=== PATIENT | female | born 1985 | race Caucasian/White ===

== ENCOUNTER 2016-03-23 07:52 | Inpatient (IN) | payer OTHER ==
[2016-03-23] VITALS (27 sets, daily range): BP systolic 116–158; BP diastolic 61–90; PULSE 71–110; RESP 17–18; TEMP 97.7–98.3
[2016-03-23] MEDS ORDERED: LACTATED RINGER'S 1000 ML INJ 1,000 ML IV PRN (08:22)
[2016-03-23] MEDS ORDERED: OXYTOCIN 30 UNITS-500ML PREMIX 500 ML IV ONE (08:30)
[2016-03-23] MEDS ORDERED: MINERAL OIL 10 ML VIAL TOPICAL PRN (08:30)
[2016-03-23] MEDS ORDERED: OXYTOCIN 30 UNITS-500ML PREMIX 500 ML IV SCH (08:30)
[2016-03-23] MEDS ORDERED: LIDOCAINE HCL 1% 50 ML VIAL I-DERMAL PRN (08:30)
[2016-03-23] MEDS ORDERED: LIDOCAINE HCL 1% 50 ML VIAL INFIL PRN (08:30)
[2016-03-23] MEDS ORDERED: SODIUM CHLORID 0.9% 500 ML INJ 500 ML IV PRN (08:30)
[2016-03-23] MEDS ORDERED: CITRIC ACID-SODIUM CITRATE LIQ 30 ML UDC PO SCH (08:30)
[2016-03-23] MEDS ORDERED: SODIUM CHLOR 0.9% 1000 ML INJ 1,000 ML IV PRN (08:42)
[2016-03-23] MEDS: LACTATED RINGER'S 1000 ML INJ 1,000 ML IV SCH ×3 (08:56→21:02)
[2016-03-23 08:59] LABS: AUTOMATED NEUTROPHIL # 6.9 TH/MM3 (1.8-7.7); BASOPHIL # 0.1 TH/MM3 (0-0.2); BASOPHIL % 0.8 % (0.0-2.0); EOSINOPHIL # 0.1 TH/MM3 (0-0.4); EOSINOPHIL % 1.1 % (0.0-4.0); HEMATOCRIT 35.8 % (35.0-46.0); HEMO FLAGS DIFF FINAL; LYMPH % 15.2 % (9.0-44.0); LYMPHOCYTE # 1.5 TH/MM3 (1.0-4.8); MEAN CELL VOLUME 89.1 FL (80.0-100.0); MEAN CORPUSCULAR HEMOGLOBIN 30.4 PG (27.0-34.0); MEAN CORPUSCULAR HGB CONC 34.1 % (32.0-36.0); MONO % 11.5 % (0.0-8.0); NEUT % 71.4 % (16.0-70.0); PLATELET COUNT 153 TH/MM3 (150-450); RED BLOOD COUNT 4.02 MIL/MM3 (4.00-5.30); RED CELL DISTRIBUTION WIDTH 13.5 % (11.6-17.2); WHITE BLOOD COUNT 9.7 TH/MM3 (4.0-11.0)
[2016-03-23 09:00] LABS: BACTERIA, URINE RARE /hpf; BLOOD, URINE NEG (NEG); GLUCOSE,URINE NEG (NEG); KETONE, URINE NEG (NEG); MUCUS URINE FEW /lpf (OCC); NITRITE,URINE NEG (NEG); SQUAMOUS EPITHELIAL CELL URINE 1 /hpf (0-5); URINE COLOR YELLOW (YELLW/STRAW)
[2016-03-23 09:01] LABS: COMMENT (UR) CULT NOT INDICATED; CULTURE IF INDICATED CULT NOT INDICATED
[2016-03-23] MEDS ORDERED: PREN29TA PO (10:09)
[2016-03-23] MEDS ORDERED: FOLIPOW21 PO (10:10)
[2016-03-23] MEDS ORDERED: fentaNYL 2MCG-BUPIV 0.125% INJ 100 ML ONE (15:59)
[2016-03-23] MEDS ORDERED: DIPHTH/TETANUS/ACEL PERTUSSIS (BOOSTER) 0.5 ML VIAL/PFS IM ONE (16:00)
[2016-03-23] MEDS ORDERED: MEASLES, MUMPS, RUBELLA VACCINE 0.5 ML VIAL SQ ONE (16:00)
[2016-03-23] MEDS ORDERED: DO NOT ADMINISTER ANTICOAGULANTS XX PRN (17:15)
[2016-03-23] MEDS ORDERED: ePHEDrine/NS 50 MG/5 ML SYR IV PRN (17:15)
[2016-03-23] MEDS ORDERED: NO SYSTEM NARCOTICS XX PRN (17:15)
[2016-03-23] MEDS ORDERED: fentaNYL 2MCG-BUPIV 0.125% INJ 100 ML EPIDURAL SCH (17:15)
--- NOTE | 2016-03-23 22:51 | PD.OB.DELI ---
Delivery Date: Mar 23, 2016 Anesthesia: Epidural Episiotomy: None Vaginal Delivery: Normal, Spontaneous Presentation: Occiput anterior Nuchal Cord: x1 Infant: Female, Single One Minute : 8 Five Minute : 9 Weight: 6# 10 oz Infant Care: Suctioned, Spontaneous crying, Responded to stimulation Placenta: Spontaneous delivery, Intact, 3 vessel cord Laceration: Vaginal laceration, 2 deg Repair: Chromic interrupted (left labial laceration and periurethral) Onesimo Biggs MD Mar 23, 2016 22:51
[2016-03-23] MEDS ORDERED: ONDANSETRON ODT 4 MG TAB PO PRN (23:00)
[2016-03-23] MEDS ORDERED: ZOLPIDEM TARTRATE 5 MG TAB PO PRN (23:00)
[2016-03-23] MEDS ORDERED: WITCH HAZEL 50%/GLYCERIN 12.5% 40 PAD JAR TOPICAL PRN (23:00)
[2016-03-23] MEDS ORDERED: SODIUM CHLORIDE 0.9% FLUSH 5 ML FLUSH IV PRN (23:00)
[2016-03-23] MEDS ORDERED: ACETAMINOPHEN 325 MG TAB PO PRN (23:00)
[2016-03-23] MEDS ORDERED: oxyCODONE/ACETAMINOPHEN 5 MG/325 MG TAB PO PRN ×2 (23:00)
[2016-03-23] MEDS ORDERED: BENZOCAINE 20% TOPICAL SPRAY 60 ML CAN TOPICAL PRN (23:00)
[2016-03-23] MEDS ORDERED: ALUMINUM/MAGNESIUM/SIMETH 30 ML CUP PO PRN (23:00)
[2016-03-23] MEDS ORDERED: DOCUSATE SODIUM 50 MG/SENNA 8.6 MG TAB PO PRN (23:00)
[2016-03-24] VITALS: BP 144/82; PULSE 82; RESP 16
[2016-03-24 00:15] VITALS: RESP 16
[2016-03-24 00:57] VITALS: BP 140/86; PULSE 104
[2016-03-24 01:00] VITALS: RESP 18; TEMP 98
[2016-03-24] MEDS: IBUPROFEN 600 MG TAB PO PRN ×4 (03:25→23:32)
--- NOTE | 2016-03-24 07:03 | MH ---
cc: [facility] DATE OF ADMISSION: 03/23/2016 HISTORY AND PHYSICAL This is a 30-year-old white female who is 1, para 0, is a schoolteacher. The patient is now 39 weeks and brought in for induction of labor with a favorable cervix. PAST MEDICAL HISTORY None. SURGICAL HISTORY None. OB HISTORY First . DRAINMAN HISTORY Negative. MEDICATIONS vitamins. ALLERGIES AUGMENTIN. AZITHROMYCIN which both cause hives. REVIEW OF SYSTEMS A few contractions. PHYSICAL EXAMINATION Vital Signs: Stable and afebrile. Thyroid palpably normal. Heart: Regular rate and rhythm, without murmur or gallop. Lungs: Clear to auscultation bilaterally. Abdomen: Soft, nontender, nondistended. Gravid uterus. Pelvic: Cervix is 2-3 cm dilated, 70% effaced, -2 station. Soft mid-position, cervix. Lower Extremities: No edema. IMPRESSION AT THIS TIME 39+ week intrauterine for induction of labor. Her Group B Strep is negative. PLAN The patient is aware of risks, benefits and alternatives of induction, desires rupture of membranes and Pitocin. MD RMAÍREZ Chowdary/MELVIN /7:59 PM /6:58 AM
[2016-03-24] MEDS ORDERED: SODIUM CHLORIDE 0.9% FLUSH 5 ML FLUSH IV SCH (09:00)
--- NOTE | 2016-03-24 15:27 | HHI.OB ---
Subjective Post Day: 1 Remarks doing well Objective Vitals/I&O Vital Signs Date Time Temp Pulse Resp B/P Pulse Ox O2 Delivery O2 Flow Rate FiO2 03/24/16 01:00 18 03/24/16 01:00 98.0 03/24/16 00:57 104 140/86 03/24/16 00:15 16 03/24/16 00:00 82 16 144/82 03/23/16 23:00 98.3 03/23/16 20:30 18 03/23/16 20:16 89 143/86 03/23/16 20:15 18 03/23/16 20:00 110 158/81 03/23/16 19:56 18 03/23/16 19:45 82 140/73 03/23/16 18:05 17 03/23/16 18:01 84 134/81 03/23/16 18:00 92 03/23/16 17:45 17 03/23/16 17:30 75 136/86 03/23/16 17:15 71 116/75 03/23/16 17:15 18 03/23/16 17:01 83 118/61 03/23/16 16:46 76 120/69 03/23/16 16:45 80 03/23/16 16:41 83 134/77 03/23/16 16:40 79 03/23/16 16:36 87 137/67 03/23/16 16:35 74 03/23/16 16:31 72 133/67 03/23/16 16:30 73 03/23/16 16:29 72 137/71 03/23/16 16:29 97.7 17 03/23/16 16:25 75 03/23/16 16:15 83 Objective Remarks GENERAL: Well-nourished, well-developed patient. . ABDOMEN/GI: Abdomen soft, non-tender. Fundus: Firm, non-tender at umbilicus. GENITOURINARY: Light to moderate bleeding. EXTREMITIES: No cyanosis or edema, non-tender, without signs of DVT. Medications and IVs Current Medications Medications (Trade) Dose Ordered Sig/Denise Route Start Time Stop Time Status Last Admin Miscellaneous Information No systemic narcotics to be given except... UNSCH PRN XX 03/23/16 17:15 03/24/16 17:14 Miscellaneous Information DO NOT ADMINISTER ANY ANTICOAGUL... UNSCH PRN XX 03/23/16 17:15 03/24/16 17:14 (NS Flush) 2 ml BID IV 03/24/16 09:00 (NS Flush) 2 ml UNSCH PRN IV 03/23/16 23:00 (Tylenol) 650 mg Q4H PRN PO 03/23/16 23:00 (Motrin) 600 mg Q6H PRN PO 03/23/16 23:00 03/24/16 09:13 (Percocet 5-325 Mg) 1 tab Q4H PRN PO 03/23/16 23:00 (Percocet 5-325 Mg) 2 tab Q4H PRN PO 03/23/16 23:00 (Americaine 20% Top Spr) 1 spray Q4H PRN TOPICAL 03/23/16 23:00 (Tucks Pads) 1 applic QID PRN TOPICAL 03/23/16 23:00 (Gertrudis-Colace) 2 tab Q12H PRN PO 03/23/16 23:00 (Ambien) 5 mg HS PRN PO 03/23/16 23:00 (Mag-Al Plus Susp Liq) 15 ml Q8H PRN PO 03/23/16 23:00 (Zofran Odt) 4 mg Q6H PRN PO 03/23/16 23:00 Assessment/Plan Problem List: (1) Spontaneous vaginal delivery Onesimo Biggs MD Mar 24, 2016 15:27
[2016-03-25] MEDS: IBUPROFEN 600 MG TAB PO PRN (06:43)
--- NOTE | 2016-03-25 07:25 | HHI.DCPOC ---
Discharge Care Plan Diagnosis: (1) Spontaneous vaginal delivery Report Symptoms to Your Doctor -Temperate above 100.5 degrees -Redness, of incision or excessive or foul smelling drainage -Unusual pain or calf pain -Increased vaginal bleeding -Painful or difficulty urinating -Feelings of extreme sadness or anxiety after 2 weeks Goals to Promote Your Health * To prevent worsening of your condition and complications * To maintain your health at the optimal level Directions to Meet Your Goals Take your medications as prescribed Follow your dietary instruction Follow activity as directed Ensure plenty of rest for recovery Drink fluids for hydration Keep your appointments as scheduled Take your immunizations and boosters as scheduled If your symptoms worsen call your PCP, if no PCP go to Urgent Care Center or Emergency Room Smoking is Dangerous to Your Health. Avoid second hand smoke Call the 24-hour crisis hotline for domestic abuse at Onesimo Biggs MD Mar 25, 2016 07:25
--- NOTE | 2016-03-25 07:27 | HHI.DS ---
Admission Date Mar 23, 2016 at 07:52 Discharge Date: Mar 25, 2016 Admitting Diagnosis Diagnosis: (1) Spontaneous vaginal delivery Diagnosis: Principal Delivery Date: Mar 23, 2016 Vaginal Delivery: Normal, Spontaneous : Female, Single Brief History patient came for induction greater than 39 weeks Hospital Course doing well, for dc home ppd#2 Pt Condition on Discharge: Good Discharge Disposition: Discharge Home Discharge Instructions Diet Instructions: As Tolerated, No Restrictions Activities You Can Perform: Pelvic Rest Activities to Avoid: Driving for 24 hrs Follow up Referrals: [facility] - 2 Weeks @ [facility] with Onesimo Biggs MD, John William C. MD Mar 25, 2016 07:27
--- NOTE | 2016-03-25 07:29 | HHI.OB ---
Subjective Post Day: 2 Remarks doing well ppd #2 Objective Objective Remarks GENERAL: Well-nourished, well-developed patient. . ABDOMEN/GI: Abdomen soft, non-tender. Fundus: Firm, non-tender at umbilicus. GENITOURINARY: Light to moderate bleeding. EXTREMITIES: No cyanosis or edema, non-tender, without signs of DVT. Medications and IVs Current Medications Medications (Trade) Dose Ordered Sig/Denise Route Start Time Stop Time Status Last Admin (NS Flush) 2 ml BID IV 03/24/16 09:00 (NS Flush) 2 ml UNSCH PRN IV 03/23/16 23:00 (Tylenol) 650 mg Q4H PRN PO 03/23/16 23:00 (Motrin) 600 mg Q6H PRN PO 03/23/16 23:00 03/25/16 06:43 (Percocet 5-325 Mg) 1 tab Q4H PRN PO 03/23/16 23:00 (Percocet 5-325 Mg) 2 tab Q4H PRN PO 03/23/16 23:00 (Americaine 20% Top Spr) 1 spray Q4H PRN TOPICAL 03/23/16 23:00 (Tucks Pads) 1 applic QID PRN TOPICAL 03/23/16 23:00 (Gertrudis-Colace) 2 tab Q12H PRN PO 03/23/16 23:00 (Ambien) 5 mg HS PRN PO 03/23/16 23:00 (Mag-Al Plus Susp Liq) 15 ml Q8H PRN PO 03/23/16 23:00 (Zofran Odt) 4 mg Q6H PRN PO 03/23/16 23:00 Assessment/Plan Problem List: (1) Spontaneous vaginal delivery Discharge Planning dc today Onesimo Biggs MD Mar 25, 2016 07:29
[2016-03-25] MEDS ORDERED: OXYC1TAB63 PO (07:58)
--- NOTE | 2016-03-25 07:58 | HHI.DS ---
Admission Date Mar 23, 2016 at 07:52 Discharge Date: Mar 25, 2016 Admitting Diagnosis Diagnosis: (1) Spontaneous vaginal delivery Diagnosis: Principal Delivery Date: Mar 23, 2016 Vaginal Delivery: Normal, Spontaneous : Female, Single Brief History patient came for induction greater than 39 weeks Hospital Course doing well dc home Pt Condition on Discharge: Good Discharge Disposition: Discharge Home Discharge Instructions Diet Instructions: As Tolerated, No Restrictions Activities You Can Perform: Pelvic Rest Activities to Avoid: Driving for 24 hrs Follow up Referrals: [facility] - 2 Weeks @ [facility] with Onesimo Biggs MD Continued Medications: Vit-Iron Carbonyl ( Plus Iron 29-1 mg) 1 Tab Tab 1 TAB PO HS Nutritional Supplement #30 Ref 0 TAB Discontinued Medications: ([Folic Acid]) 2 TAB PO HS Onesimo Biggs MD Mar 25, 2016 07:58
== END 2016-03-25 11:32 | disposition home or self-care (01) | DRG 775 ==
LOC: H2EB 07:52 → H1EA 03-24 01:09
PROVIDERS: ADMIT Obstetrics & Gynecology; ATTEND Obstetrics & Gynecology
PROC: 10E0XZZ Delivery of Products of Conception, External Approach (ICD-10-PCS; principal; 2016-03-23)
PROC: 0KQM0ZZ Repair Perineum Muscle, Open Approach (ICD-10-PCS; 2016-03-23)
PROC: 3E0R3CZ (ICD-10-PCS; 2016-03-23)
PROC: 00HU33Z Insertion of Infusion Device into Spinal Canal, Percutaneous Approach (ICD-10-PCS; 2016-03-23)
DX: O70.1 Second degree perineal laceration during delivery (principal); Z37.0 Single live birth; O69.81X0 Labor and delivery complicated by cord around neck, without compression, not applicable or unspecified; Z3A.39 39 weeks gestation of pregnancy
CPT/HCPCS: 76937; 81001; 85025; 86900; 86901; J2590; J7120